=== PATIENT | female | born 1985 | race Caucasian/White ===

== ENCOUNTER 2022-02-03 21:53 | Emergency (ER) | payer BC ==
[~2022-02-03] VITALS: Ht 165.1 cm; Wt 52.2 kg
--- NOTE | 2022-02-03 22:23 | NUR ---
Dr. Mansfield at bedside for MSE.
[2022-02-03] MEDS ORDERED: HYDROMORPHONE 1 MG/1 ML DISP.SYRIN IV ONE (22:30)
[2022-02-03] MEDS ORDERED: IV NORMAL SALINE 500 ML IV ONE (22:30)
[2022-02-03] MEDS ORDERED: ONDANSETRON 4 MG/2 ML VIAL IV ONE (22:30)
--- NOTE | 2022-02-03 22:35 | NUR ---
Xray at bedside.
[2022-02-03 22:51] LABS: HEMATOCRIT 35.8 % (31.2-41.9); MEAN CORPUSCULAR HEMOGLOBIN 29.2 uug (24.7-32.8); PLATELET COUNT (AUTO) 216 K/uL (179-408)
[2022-02-03 22:58] LABS: CREATININE 0.6 mg/dL (0.6-1.3); POTASSIUM 3.1 mmol/L (3.5-5.1)
[2022-02-03 23:05] LABS: BILIRUBIN,DIRECT 0.1 mg/dL (0.0-0.2); BILIRUBIN,TOTAL 0.2 mg/dL (0.2-1.0); MAGNESIUM 2.1 mg/dL (1.8-2.4); TOTAL PROTEIN, SERUM 7.3 g/dL (6.4-8.2)
[2022-02-03] MEDS ORDERED: POTASSIUM BICARBONATE/CIT AC 25 MEQ TABLET.EFF ONE (23:12)
[2022-02-03] MEDS ORDERED: OXYC-128 PO (23:15)
[2022-02-03] MEDS ORDERED: POTASSIUM BICARBONATE/CIT AC 25 MEQ TABLET.EFF PO ONE (23:15)
[2022-02-03 23:25] VITALS: BP 101/89
--- NOTE | 2022-02-03 23:25 | NUR ---
Patient discharged to home in stable condition. Written and verbal after care instructions given. Patient verbalizes understanding of instructions. Stressed follow up or return to ER for worsening s/s. Patient out of ER with steady gait, no acute signs of distress, VSS, all belongings taken, provided with copies of labs and xray results.
== END 2022-02-03 23:26 | disposition home or self-care (01) ==
LOC: ER 21:59
DX: R10.10 Upper abdominal pain, unspecified (principal); E87.6 Hypokalemia; R00.0 Tachycardia, unspecified
CPT/HCPCS: 36415; 71045; 83690; 83735; 85025; 93005; A4663